=== PATIENT | female | born 1960 | race Caucasian/White ===

== ENCOUNTER 2022-04-11 20:39 | Emergency (ER) | payer BC ==
[~2022-04-11] VITALS: Ht 167.6 cm; Wt 72.7 kg
[2022-04-12] MEDS ORDERED: acetaminophen 325mg tablet PO ONE (01:15)
[2022-04-12] MEDS ORDERED: LIDOcaine/epinephrine/tetracaine TOPICAL sol 3 ML syringe TOP ONE (01:15)
[2022-04-12 01:47] VITALS: BP 152/73
[2022-04-12] MEDS ORDERED: bacitracin 15gm ointment TP ONE (03:00)
== END 2022-04-12 04:06 | disposition home or self-care (01) ==
LOC: ER 20:40
DX: T14.8XXA Other injury of unspecified body region, initial encounter (principal)
CPT/HCPCS: 12013; 70450; 70486; 72125; 99284; J3490

== ENCOUNTER 2022-10-20 00:07 | Inpatient (IN) | payer BC ==
[~2022-10-20] VITALS: Ht 165.1 cm; Wt 77.2 kg
[2022-10-20] VITALS (15 sets, daily range): BP systolic 122–183; BP diastolic 65–100
[2022-10-20] MEDS ORDERED: aspirin 325mg tablet PO ONE (00:50)
[2022-10-20 01:34] LABS: ALANINE AMINOTRANSFERASE 29 U/L (12-78); ALBUMIN 3.8 G/DL (3.4-5.0); ALBUMIN/GLOBULIN RATIO 1.2 (1.1-1.5); ALKALINE PHOSPHATASE 88 IU/L (46-116); ANION GAP 8 (8-16); ASPARTATE AMINO TRANSFERASE 18 U/L (10-37); BILIRUBIN,TOTAL 0.3 MG/DL (0.1-1.0); BLOOD UREA NITROGEN 25 MG/DL (7-18); BUN/CREATININE RATIO 36.2 (6.6-38.0); CALCIUM 8.3 MG/DL (8.5-10.1); CHLORIDE 107 MMOL/L (99-107); CREATININE 0.69 MG/DL (0.40-0.90); GLUCOSE 189 MG/DL (70-104); POTASSIUM 3.4 MMOL/L (3.5-5.1); SODIUM 142 MMOL/L (135-145); TOTAL CARBON DIOXIDE 26.7 MMOL/L (24-32); eGFR 86 ML/MIN
[2022-10-20 02:02] LABS: BASOPHILS # (AUTO) 0.1 X10'3 (0-0.2); BASOPHILS % (AUTO) 1.3 % (0-1); EOSINOPHILS # (AUTO) 0.1 X10'3 (0-0.9); EOSINOPHILS % (AUTO) 2.7 % (0-6); HEMATOCRIT 40.9 % (35.0-45.0); HEMOGLOBIN 14.4 g/dl (12.0-16.0); LYMPHOCYTES # (AUTO) 1.5 X10'3 (1.1-4.8); LYMPHOCYTES % (AUTO) 27.8 % (21-51); MEAN CORPUSCULAR HEMOGLOBIN 32.8 PG (27.0-31.0); MEAN CORPUSCULAR HGB CONC 35.2 g/dL (33.0-36.5); MEAN CORPUSCULAR VOLUME 93.3 FL (78-98); MONOCYTES # (AUTO) 0.6 X10'3 (0-0.9); MONOCYTES % (AUTO) 10.7 % (2-12); NEUTROPHILS # (AUTO) 3.1 X10'3 (1.8-7.7); NEUTROPHILS % (AUTO) 57.5 % (42-75); PLATELET COUNT 145 X10'3 (140-440); RED BLOOD COUNT 4.39 X10'6 (4.20-5.60); RED CELL DISTRIBUTION WIDTH 12.2 % (11.5-14.5); WHITE BLOOD COUNT 5.4 X10'3 (4.5-11.0)
[2022-10-20] MEDS ORDERED: magnesium 4gm in 100ml NS 100 ML IV PRN (03:40)
[2022-10-20] MEDS ORDERED: ondansetron/PF 4mg/2ml inj IV PRN (03:40)
[2022-10-20] MEDS ORDERED: mag hydrox/Alum hydrox/simeth 30ml oral suspension PO PRN (03:40)
[2022-10-20] MEDS ORDERED: PERFLUTREN PROTEIN-A MICROSPHR (Optison) 0.22 MG/ML 3ML VIAL IV PRN (03:40)
[2022-10-20] MEDS ORDERED: potassium Cl 40MEQ/1/2NS 520ml 520 ML IV PRN (03:40)
[2022-10-20] MEDS ORDERED: magnesium hydroxide 30ml (MOM) UD suspension PO PRN (03:40)
[2022-10-20] MEDS ORDERED: potassium Cl 20 mEq SR tablet PO PRN ×2 (03:40)
[2022-10-20] MEDS ORDERED: aminophylline 250mg/10ml inj. IV PRN (03:40)
[2022-10-20] MEDS ORDERED: acetaminophen 325mg tablet PO PRN (03:40)
[2022-10-20] MEDS ORDERED: metoprolol tartrate 1mg/ml inj IV PRN (03:40)
[2022-10-20] MEDS ORDERED: regadenoson 0.4mg/5ml syringe IV PRN (03:40)
[2022-10-20] MEDS ORDERED: nitroGLYCERIN 0.4mg SUBLingual tab SL PRN (03:40)
[2022-10-20] MEDS ORDERED: LEVO175T7 PO (03:53)
[2022-10-20] MEDS ORDERED: METO-395 PO (03:53)
[2022-10-20] MEDS ORDERED: PROG100C11 PO (03:53)
[2022-10-20] MEDS ORDERED: LISI5TAB22 PO (03:53)
[2022-10-20] MEDS: normal saline 1000ml 1,000 ML IV SCH ×2 (06:50→13:40)
[2022-10-20] MEDS: metoprolol succinate 25mg (24-HOUR) SR. Tablet PO SCH (08:00)
[2022-10-20] MEDS: docusate sod 100mg capsule PO SCH ×2 (08:30→21:15)
[2022-10-20] MEDS: levoTHYROXINE 175mcg tablet PO SCH (08:31)
[2022-10-20] MEDS: lisinopril 5mg tablet PO SCH (08:32)
[2022-10-20] MEDS: K and/or MAG REPLACEMENT MC SCH ×2 (08:35→20:00)
--- NOTE | 2022-10-20 09:55 | NUR ---
Incorrect VS 0700 See 0701 repeat
--- NOTE | 2022-10-20 10:06 | NUR ---
CRITICAL LAB CALLED WITH TROPONIN 63. DR. LIM PAGED WITH INFORMATION. PAGER ID: [phone] MESSAGE: ER BED 9-- LI. TROPONIN 63. PATIENT IS CURRENTLY IN STRESS TEST AND WILL BE GOING TO ROOM 3024B. THANKS, CARY BOYD [phone]
--- NOTE | 2022-10-20 10:07 | NUR ---
Patient in room ED 9. I have received report from Jessica BOYD and had the opportunity to ask questions and assume patient care.
[2022-10-20] MEDS ORDERED: enoxaparin 80mg/0.8ml syringe SUBCUT ONE (13:45)
--- NOTE | 2022-10-20 18:15 | NUR ---
Problems reprioritized. Patient report given, questions answered & plan of care reviewed with Naldo BOYD.
[2022-10-20] MEDS: enoxaparin 40mg/0.4ml syringe SQ SCH (21:18)
[2022-10-20] MEDS: progesterone, micronized 100mg capsule PO SCH (21:38)
[2022-10-21] VITALS (7 sets, daily range): BP systolic 120–147; BP diastolic 58–64
[2022-10-21] MEDS: normal saline 1000ml 1,000 ML IV SCH ×3 (02:00→19:40)
[2022-10-21 06:12] LABS: BASOPHILS # (AUTO) 0.1 X10'3 (0-0.2); BASOPHILS % (AUTO) 1.2 % (0-1); EOSINOPHILS # (AUTO) 0.1 X10'3 (0-0.9); EOSINOPHILS % (AUTO) 2.7 % (0-6); HEMATOCRIT 41.6 % (35.0-45.0); HEMOGLOBIN 14.3 g/dl (12.0-16.0); LYMPHOCYTES # (AUTO) 1.5 X10'3 (1.1-4.8); LYMPHOCYTES % (AUTO) 35.4 % (21-51); MEAN CORPUSCULAR HEMOGLOBIN 32.3 PG (27.0-31.0); MEAN CORPUSCULAR HGB CONC 34.3 g/dL (33.0-36.5); MEAN CORPUSCULAR VOLUME 94.2 FL (78-98); MEAN PLATELET VOLUME 8.4 FL (7.4-10.4); MONOCYTES # (AUTO) 0.4 X10'3 (0-0.9); MONOCYTES % (AUTO) 10.6 % (2-12); NEUTROPHILS # (AUTO) 2.1 X10'3 (1.8-7.7); NEUTROPHILS % (AUTO) 50.1 % (42-75); PLATELET COUNT 128 X10'3 (140-440); RED BLOOD COUNT 4.42 X10'6 (4.20-5.60); RED CELL DISTRIBUTION WIDTH 12.6 % (11.5-14.5); WHITE BLOOD COUNT 4.2 X10'3 (4.5-11.0)
[2022-10-21 06:22] LABS: ALANINE AMINOTRANSFERASE 24 U/L (12-78); ALBUMIN 3.5 G/DL (3.4-5.0); ALBUMIN/GLOBULIN RATIO 1.1 (1.1-1.5); ALKALINE PHOSPHATASE 53 IU/L (46-116); ANION GAP 7 (8-16); ASPARTATE AMINO TRANSFERASE 17 U/L (10-37); BILIRUBIN,TOTAL 0.4 MG/DL (0.1-1.0); BLOOD UREA NITROGEN 11 MG/DL (7-18); CALCIUM 8.3 MG/DL (8.5-10.1); CHLORIDE 110 MMOL/L (99-107); CREATININE 0.58 MG/DL (0.40-0.90); GLUCOSE 103 MG/DL (70-104); POTASSIUM 3.7 MMOL/L (3.5-5.1); SODIUM 143 MMOL/L (135-145); TOTAL CARBON DIOXIDE 25.6 MMOL/L (24-32); TOTAL PROTEIN 6.6 G/DL (6.4-8.2); eGFR > 90 ML/MIN
--- NOTE | 2022-10-21 06:54 | NUR ---
Patient in room PCU 3020L . I have received report Naldo BOYD from and had the opportunity to ask questions and assume patient care.
[2022-10-21] MEDS ORDERED: aminocaproic acid 250 MG/1 ML inj. ONE (07:00)
[2022-10-21] MEDS ORDERED: albumin (human) 25% 100 ML IV solution IV ONE (07:00)
[2022-10-21] MEDS ORDERED: LIDOcaine 2% 10ml vial ONE (07:00)
[2022-10-21] MEDS ORDERED: methylPREDNISolone sod succ 1000mg vial ONE (07:00)
[2022-10-21] MEDS ORDERED: calcium chloride 100 MG/1 ML inj IV ONE (07:00)
[2022-10-21] MEDS ORDERED: magnesium sulf 1 GM/2 ML ONE (07:00)
[2022-10-21] MEDS ORDERED: sodium bicarbonate (8.4%) 1 mEq/ml syringe ONE (07:00)
[2022-10-21] MEDS ORDERED: heparin 10,000 units/1 ML INJ ONE (07:00)
[2022-10-21] MEDS: K and/or MAG REPLACEMENT MC SCH ×2 (08:00→19:18)
[2022-10-21] MEDS: levoTHYROXINE 175mcg tablet PO SCH (08:33)
[2022-10-21] MEDS: docusate sod 100mg capsule PO SCH ×2 (08:37→19:25)
[2022-10-21] MEDS: metoprolol succinate 25mg (24-HOUR) SR. Tablet PO SCH (08:37)
[2022-10-21] MEDS: lisinopril 5mg tablet PO SCH (08:37)
--- NOTE | 2022-10-21 13:13 | NUR ---
PAGER ID: [phone] MESSAGE: ESTEBAN ON [phone], CAN YOU CALL ME AT [phone], THX
--- NOTE | 2022-10-21 13:21 | NUR ---
patient had been NPO. paged dr chandler. stated dr degroot stated patient can eat. I gave patient heart healty diet. will page dr degroot and cath to see if patient is getting an angiogram today
[2022-10-21] MEDS: progesterone, micronized 100mg capsule PO SCH (19:27)
[2022-10-21] MEDS: enoxaparin 40mg/0.4ml syringe SQ SCH (19:27)
[2022-10-22] VITALS (12 sets, daily range): BP systolic 125–149; BP diastolic 54–72
[2022-10-22 06:13] LABS: BASOPHILS # (AUTO) 0.1 X10'3 (0-0.2); BASOPHILS % (AUTO) 1.2 % (0-1); EOSINOPHILS # (AUTO) 0.1 X10'3 (0-0.9); EOSINOPHILS % (AUTO) 2.2 % (0-6); HEMATOCRIT 39.7 % (35.0-45.0); HEMOGLOBIN 14.1 g/dl (12.0-16.0); LYMPHOCYTES # (AUTO) 1.6 X10'3 (1.1-4.8); LYMPHOCYTES % (AUTO) 35.8 % (21-51); MEAN CORPUSCULAR HEMOGLOBIN 33.2 PG (27.0-31.0); MEAN CORPUSCULAR HGB CONC 35.5 g/dL (33.0-36.5); MEAN CORPUSCULAR VOLUME 93.6 FL (78-98); MONOCYTES # (AUTO) 0.4 X10'3 (0-0.9); MONOCYTES % (AUTO) 9.8 % (2-12); NEUTROPHILS # (AUTO) 2.3 X10'3 (1.8-7.7); PLATELET COUNT 126 X10'3 (140-440); RED BLOOD COUNT 4.24 X10'6 (4.20-5.60); RED CELL DISTRIBUTION WIDTH 12.3 % (11.5-14.5); WHITE BLOOD COUNT 4.6 X10'3 (4.5-11.0)
[2022-10-22] MEDS: normal saline 1000ml 1,000 ML IV SCH ×2 (06:21→09:23)
[2022-10-22 06:43] LABS: ALANINE AMINOTRANSFERASE 21 U/L (12-78); ALBUMIN 3.3 G/DL (3.4-5.0); ALBUMIN/GLOBULIN RATIO 1.1 (1.1-1.5); ALKALINE PHOSPHATASE 49 IU/L (46-116); ANION GAP 8 (8-16); ASPARTATE AMINO TRANSFERASE 21 U/L (10-37); BILIRUBIN,TOTAL 0.4 MG/DL (0.1-1.0); BLOOD UREA NITROGEN 11 MG/DL (7-18); BUN/CREATININE RATIO 18.6 (6.6-38.0); CALCIUM 8.4 MG/DL (8.5-10.1); CHLORIDE 109 MMOL/L (99-107); CHOL/HDL RATIO 5.1 (0.00-4.99); CHOLESTEROL 183 MG/DL (0-200); CREATININE 0.59 MG/DL (0.40-0.90); GLUCOSE 102 MG/DL (70-104); HDL CHOLESTEROL 36 MG/DL (35-60); LDL CHOLESTEROL 112 MG/DL (50-100); MAGNESIUM 2.1 MG/DL (1.5-2.4); POTASSIUM 3.9 MMOL/L (3.5-5.1); SODIUM 140 MMOL/L (135-145); TOTAL PROTEIN 6.4 G/DL (6.4-8.2); TRIGLYCERIDES 214 MG/DL (20-135); eGFR > 90 ML/MIN
[2022-10-22] MEDS: K and/or MAG REPLACEMENT MC SCH ×2 (08:00→20:00)
[2022-10-22] MEDS: metoprolol succinate 25mg (24-HOUR) SR. Tablet PO SCH (08:25)
[2022-10-22] MEDS: aspirin 325mg tablet, delayed-release (Ecotrin) PO SCH (08:25)
[2022-10-22] MEDS: docusate sod 100mg capsule PO SCH ×2 (08:25→22:22)
[2022-10-22] MEDS: lisinopril 5mg tablet PO SCH (08:26)
[2022-10-22] MEDS: levoTHYROXINE 175mcg tablet PO SCH (08:32)
--- NOTE | 2022-10-22 12:03 | NUR ---
PAGER ID: [phone] MESSAGE: ESTEBAN ON TELE@[phone], 3084B, GUILLERMO, IS GOING TO WATER SERVER ABOUT 1300ISH, THX (73 character message out of a maximum of 240) CLOSE [X] SEND ANOTHER PAGE Thank you for visiting [facility] promotional table spacer promotional table spacer
[2022-10-22] MEDS ORDERED: verapamil 2.5 mg/ml inj IV ONE (14:05)
[2022-10-22] MEDS ORDERED: fentaNYL/PF 50MCG/1 ML 2ML syringe ONE (14:05)
[2022-10-22] MEDS ORDERED: midazolam 1 mg/ML 2ml injection ONE (14:05)
[2022-10-22] MEDS ORDERED: LIDOcaine 1% (10mg/ml) 2ml vial ONE (14:05)
[2022-10-22] MEDS ORDERED: heparin 1,000unit/ml 10ml vial 10 ML ONE (14:06)
[2022-10-22] MEDS ORDERED: iohexol 350MG/ML 100ml bottle IV ONE (14:06)
[2022-10-22] MEDS ORDERED: nitroGLYCERIN-Tridil 50MG/D5W 250 ML IV ONE (14:06)
[2022-10-22] MEDS ORDERED: iohexol 350 MG/ML 50ML vial IV ONE (14:53)
[2022-10-22] MEDS ORDERED: HYDROcodone/acetaminophen 10/325mg tab PO PRN (15:25)
[2022-10-22] MEDS ORDERED: HYDROcodone/acetaminophen 5mg/325mg tablet PO PRN (15:25)
--- NOTE | 2022-10-22 15:52 | NUR ---
Pt returned from parking lot laborer at approx 1530, R radial access obtained in lab. Report of 100% LAD and 99% RLA occlusion. Cardio consult pending. LN paged @ [phone] - Patient 3024B Janna Wilde, returned from parking lot laborer has been NPO, may we advance diet? Please advise. Neelima Kaur, BARBARA II @[phone].
--- NOTE | 2022-10-22 15:56 | NUR ---
MD gave telephone order to advance diet to heart healthy, orders updated.
--- NOTE | 2022-10-22 18:00 | NUR ---
Patient in room PCU 3024. I have received report from Neelima JIMENEZ and had the opportunity to ask questions and assume patient care.
[2022-10-22] MEDS: enoxaparin 40mg/0.4ml syringe SQ SCH (22:22)
[2022-10-22] MEDS: atorvastatin 20mg tablet PO SCH (22:22)
[2022-10-22] MEDS: progesterone, micronized 100mg capsule PO SCH (22:23)
[2022-10-23] VITALS (8 sets, daily range): BP systolic 123–149; BP diastolic 58–75
[2022-10-23] MEDS: normal saline 1000ml 1,000 ML IV SCH (01:40)
--- NOTE | 2022-10-23 02:00 | NUR ---
PT WANTED TO SLEEP AND REQUESTED TO START THE FLUIDS LATER. WE WILL START THE NS AT 5:30 PER PATIENT REQUEST
[2022-10-23 06:09] LABS: BASOPHILS % (AUTO) 0.9 % (0-1); EOSINOPHILS # (AUTO) 0.1 X10'3 (0-0.9); EOSINOPHILS % (AUTO) 1.4 % (0-6); HEMATOCRIT 42.5 % (35.0-45.0); HEMOGLOBIN 14.9 g/dl (12.0-16.0); LYMPHOCYTES # (AUTO) 1.1 X10'3 (1.1-4.8); LYMPHOCYTES % (AUTO) 19.1 % (21-51); MEAN CORPUSCULAR HEMOGLOBIN 32.6 PG (27.0-31.0); MEAN CORPUSCULAR HGB CONC 35.1 g/dL (33.0-36.5); MEAN PLATELET VOLUME 8.2 FL (7.4-10.4); MONOCYTES # (AUTO) 0.6 X10'3 (0-0.9); MONOCYTES % (AUTO) 10.7 % (2-12); NEUTROPHILS # (AUTO) 3.9 X10'3 (1.8-7.7); NEUTROPHILS % (AUTO) 67.9 % (42-75); PLATELET COUNT 131 X10'3 (140-440); RED BLOOD COUNT 4.57 X10'6 (4.20-5.60); RED CELL DISTRIBUTION WIDTH 12.1 % (11.5-14.5); WHITE BLOOD COUNT 5.7 X10'3 (4.5-11.0)
[2022-10-23 06:15] LABS: ALANINE AMINOTRANSFERASE 32 U/L (12-78); ALBUMIN 3.8 G/DL (3.4-5.0); ALBUMIN/GLOBULIN RATIO 1.1 (1.1-1.5); ALKALINE PHOSPHATASE 57 IU/L (46-116); ANION GAP 9 (8-16); ASPARTATE AMINO TRANSFERASE 22 U/L (10-37); BILIRUBIN,TOTAL 0.5 MG/DL (0.1-1.0); BLOOD UREA NITROGEN 13 MG/DL (7-18); BUN/CREATININE RATIO 22.4 (6.6-38.0); CALCIUM 8.9 MG/DL (8.5-10.1); CHLORIDE 107 MMOL/L (99-107); CREATININE 0.58 MG/DL (0.40-0.90); GLUCOSE 116 MG/DL (70-104); POTASSIUM 3.7 MMOL/L (3.5-5.1); SODIUM 141 MMOL/L (135-145); TOTAL CARBON DIOXIDE 25.5 MMOL/L (24-32); TOTAL PROTEIN 7.2 G/DL (6.4-8.2); eGFR > 90 ML/MIN
--- NOTE | 2022-10-23 06:37 | NUR ---
Problems reprioritized. Patient report given, questions answered & plan of care reviewed with Neelima RN.
[2022-10-23] MEDS: lisinopril 5mg tablet PO SCH (07:50)
[2022-10-23] MEDS: metoprolol succinate 25mg (24-HOUR) SR. Tablet PO SCH (07:50)
[2022-10-23] MEDS: aspirin 325mg tablet, delayed-release (Ecotrin) PO SCH (07:50)
[2022-10-23] MEDS: levoTHYROXINE 175mcg tablet PO SCH (07:50)
[2022-10-23] MEDS: docusate sod 100mg capsule PO SCH ×2 (07:50→21:58)
[2022-10-23] MEDS: K and/or MAG REPLACEMENT MC SCH ×2 (08:00→20:00)
[2022-10-23] MEDS ORDERED: MESSAGE TO PHARMACY IJ ONE (08:20)
[2022-10-23] MEDS ORDERED: dextrose 50%-water 50ml dispensing syringe IV PRN (08:20)
[2022-10-23] MEDS ORDERED: MESSAGE TO NURSING PO ONE ×5 (08:20→10:00)
[2022-10-23 09:28] LABS: APTT 29 SECONDS (22-32)
[2022-10-23 09:46] LABS: HEMOGLOBIN A1C 5.2 % (4.5-6.2)
[2022-10-23 12:07] LABS: CLARITY,URINE SLIGHTLY CLOUDY (Clear); COLOR,URINE YELLOW (Yellow); GLUCOSE, URINE NEGATIVE (Neg); KETONES,URINE NEGATIVE (Neg); LEUKOCYTE ESTERASE ,URINE SMALL (Neg); NITRITES, URINE NEGATIVE (Neg); OCCULT BLOOD,URINE SMALL (Neg); PH,URINE 5.5 (4.8-8.0); PROTEIN,URINE NEGATIVE (Neg); UROBILINOGEN,URINE 0.2 E.U/dL (0.2-1.0)
[2022-10-23 12:59] LABS: UA COLLECTION TYPE CLN CATCH MIDSTREAM
[2022-10-23 13:01] LABS: BACTERIA,URINE 2+ /HPF (Neg)
[2022-10-23 13:02] LABS: MUCUS STRANDS FEW /LPF (Neg); SQUAMOUS EPITHELIAL CELL,UR MANY /LPF (FEW)
[2022-10-23 18:02] LABS: ABG BASE EXCESS -1.2 mmol/L (-2.0-2.0); ABG HCO3 22.7 mmol/L (22.0-26.0); ABG OXYGEN SATURATION 96.1 % (94-97); ABG PCO2 (T) 35.8 mmHg (32.0-45.0); ABG PO2 (T) 83.1 mmHg (75.0-100.0); ALLEN'S TEST POSITIVE; FCOHb 0.2 % (0.0-3.9); FMetHb 0.1 % (0.0-1.5); FO2Hb 95.8 % (94-97); TOTAL HEMOGLOBIN 15.7 G/dl (12.0-16.0)
[2022-10-23] MEDS: progesterone, micronized 100mg capsule PO SCH (21:58)
[2022-10-23] MEDS: atorvastatin 20mg tablet PO SCH (21:58)
[2022-10-23] MEDS: enoxaparin 40mg/0.4ml syringe SQ SCH (21:58)
[2022-10-24 02:00] VITALS: BP 131/76
[2022-10-24 06:12] LABS: BASOPHILS % (AUTO) 0.8 % (0-1); EOSINOPHILS # (AUTO) 0.1 X10'3 (0-0.9); EOSINOPHILS % (AUTO) 1.7 % (0-6); HEMOGLOBIN 14.9 g/dl (12.0-16.0); LYMPHOCYTES # (AUTO) 1.3 X10'3 (1.1-4.8); LYMPHOCYTES % (AUTO) 24.5 % (21-51); MEAN CORPUSCULAR HEMOGLOBIN 32.4 PG (27.0-31.0); MEAN CORPUSCULAR HGB CONC 34.6 g/dL (33.0-36.5); MEAN CORPUSCULAR VOLUME 93.6 FL (78-98); MEAN PLATELET VOLUME 8.3 FL (7.4-10.4); MONOCYTES # (AUTO) 0.6 X10'3 (0-0.9); MONOCYTES % (AUTO) 11.4 % (2-12); NEUTROPHILS # (AUTO) 3.3 X10'3 (1.8-7.7); NEUTROPHILS % (AUTO) 61.6 % (42-75); PLATELET COUNT 135 X10'3 (140-440); RED BLOOD COUNT 4.59 X10'6 (4.20-5.60); RED CELL DISTRIBUTION WIDTH 12.5 % (11.5-14.5); WHITE BLOOD COUNT 5.3 X10'3 (4.5-11.0)
--- NOTE | 2022-10-24 06:17 | NUR ---
Patient in room PCU 3024. I have received report from Neelima RN and had the opportunity to ask questions and assume patient care.
[2022-10-24 06:21] LABS: ALANINE AMINOTRANSFERASE 57 U/L (12-78); ALBUMIN 3.8 G/DL (3.4-5.0); ALBUMIN/GLOBULIN RATIO 1.1 (1.1-1.5); ALKALINE PHOSPHATASE 61 IU/L (46-116); ANION GAP 6 (8-16); ASPARTATE AMINO TRANSFERASE 38 U/L (10-37); BILIRUBIN,TOTAL 0.5 MG/DL (0.1-1.0); BLOOD UREA NITROGEN 19 MG/DL (7-18); BUN/CREATININE RATIO 27.1 (6.6-38.0); CALCIUM 8.7 MG/DL (8.5-10.1); CHLORIDE 107 MMOL/L (99-107); GLUCOSE 124 MG/DL (70-104); MAGNESIUM 1.9 MG/DL (1.5-2.4); POTASSIUM 4.3 MMOL/L (3.5-5.1); SODIUM 141 MMOL/L (135-145); TOTAL CARBON DIOXIDE 28.4 MMOL/L (24-32); TOTAL PROTEIN 7.2 G/DL (6.4-8.2); eGFR 85 ML/MIN
--- NOTE | 2022-10-24 06:32 | NUR ---
Problems reprioritized. Patient report given, questions answered & plan of care reviewed with Agueda BOYD.
[2022-10-24 07:00] VITALS: BP 139/64
[2022-10-24] MEDS: docusate sod 100mg capsule PO SCH ×3 (08:00→20:00)
[2022-10-24] MEDS: K and/or MAG REPLACEMENT MC SCH ×2 (08:00→20:00)
[2022-10-24] MEDS: metoprolol succinate 25mg (24-HOUR) SR. Tablet PO SCH (08:03)
[2022-10-24] MEDS: lisinopril 5mg tablet PO SCH (08:03)
[2022-10-24] MEDS: aspirin 325mg tablet, delayed-release (Ecotrin) PO SCH (08:03)
[2022-10-24] MEDS: levoTHYROXINE 175mcg tablet PO SCH (08:03)
[2022-10-24] MEDS ORDERED: ringers solution, lacted 1,000 ML IV ONE (08:10)
[2022-10-24] MEDS ORDERED: ALPRAZolam 0.25mg tablet PO PRN (09:25)
[2022-10-24] MEDS: LORazepam 0.5 MG tablet PO PRN ×2 (10:23→21:42)
--- NOTE | 2022-10-24 11:03 | NUR ---
Initial: Pt admitted for unstable angina. Per MD notes pt had a cardiac cath with recommendation for CABG, tentatively to occur tomorrow. Pt on a heart healthy diet and eating well, documented with 75-100% PO intake since admit meeting estimated nutrient needs. LB 10/24. No nutrition intervention implemented at this time. Will continue to follow. Recommendations: 1) Continue heart healthy diet 2) Routine bowel care 3) Weekly scaled weights Addendum: 10/24/22 at [address] Amended: Links added.
[2022-10-24 12:12] VITALS: BP 123/79
[2022-10-24 15:29] VITALS: BP 146/66
[2022-10-24 18:00] VITALS: BP 145/63
--- NOTE | 2022-10-24 18:00 | NUR ---
Patient in room PCU 3024. I have received report from Agueda BOYD and had the opportunity to ask questions and assume patient care.
[2022-10-24] MEDS: atorvastatin 20mg tablet PO SCH (21:42)
[2022-10-24] MEDS: enoxaparin 40mg/0.4ml syringe SQ SCH (21:42)
[2022-10-24] MEDS: progesterone, micronized 100mg capsule PO SCH (21:48)
[2022-10-24 22:00] VITALS: BP 136/74
[2022-10-25] VITALS (20 sets, daily range): BP systolic 88–146; BP diastolic 5–69
[2022-10-25] MEDS ORDERED: gabapentin 400mg capsule PO ONE ×2 (05:30→07:05)
[2022-10-25] MEDS ORDERED: mupirocin 2% nasal ointment 1gm UD NS SCH (05:30)
[2022-10-25] MEDS ORDERED: insulin glargine (Lantus) pen - multi-dose SQ PRN ×2 (05:30→13:50)
[2022-10-25] MEDS ORDERED: famotidine/PF 10 mg/ml inj IV ONE (06:00)
[2022-10-25] MEDS ORDERED: LORazepam 2 mg/ml vial IV ONE (06:00)
[2022-10-25] MEDS ORDERED: ceFAZolin 1000mg inj ONE ×2 (06:13→07:30)
[2022-10-25] MEDS ORDERED: BUPIVAcaine/PF 2.5 mg/ml (0.25%) 30ml vial ONE (06:13)
[2022-10-25] MEDS ORDERED: heparin 10,000 units/1 ML INJ IR ONE (06:38)
[2022-10-25] MEDS ORDERED: papaverine 30 mg/ml 2ml inj. IA ONE (06:39)
--- NOTE | 2022-10-25 06:45 | NUR ---
Made sure that all consent forms are signed and dated. Completed and in chart
--- NOTE | 2022-10-25 06:59 | NUR ---
Problems reprioritized. Patient report given, questions answered & plan of care reviewed with Marlen BOYD.
[2022-10-25] MEDS ORDERED: MIDAZolam 1mg/ml 10ml vial ONE (07:12)
[2022-10-25] MEDS ORDERED: SUfentanil 50mcg/ml 1ml amp IV ONE (07:12)
[2022-10-25] MEDS: metoprolol succinate 25mg (24-HOUR) SR. Tablet PO SCH (07:27)
[2022-10-25] MEDS ORDERED: INSULIN R 100 UNIT in NS 100ML (1 UNIT/1 ML) BAG IV ONE (07:30)
[2022-10-25] MEDS ORDERED: isoflurane 100ml inhalation liquid IH ONE (07:30)
[2022-10-25] MEDS ORDERED: nitroGLYCERIN in D5W 50mg/250ml (Tridil) infusion IV ONE (07:30)
[2022-10-25] MEDS ORDERED: DOPamine/D5W 400mg/250ml bag IV ONE (07:30)
[2022-10-25] MEDS ORDERED: NORepinephrine 8 MG in NS 250 ML BAG (32 mcg/ml) IV ONE (07:30)
--- NOTE | 2022-10-25 07:31 | NUR ---
Pt was taken down to OR, accompanied by Staff, , and son. All personal belongings were taken by son. Nothing left in the room.
[2022-10-25 07:38] LABS: BASOPHILS # (AUTO) 0.1 X10'3 (0-0.2); BASOPHILS % (AUTO) 0.9 % (0-1); EOSINOPHILS # (AUTO) 0.1 X10'3 (0-0.9); EOSINOPHILS % (AUTO) 1.8 % (0-6); LYMPHOCYTES # (AUTO) 1.5 X10'3 (1.1-4.8); LYMPHOCYTES % (AUTO) 25.1 % (21-51); MEAN PLATELET VOLUME 8.4 FL (7.4-10.4); MONOCYTES # (AUTO) 0.6 X10'3 (0-0.9); MONOCYTES % (AUTO) 9.5 % (2-12); NEUTROPHILS # (AUTO) 3.9 X10'3 (1.8-7.7); NEUTROPHILS % (AUTO) 62.7 % (42-75); PLATELET COUNT 135 X10'3 (140-440); WHITE BLOOD COUNT 6.2 X10'3 (4.5-11.0)
[2022-10-25 07:44] LABS: ALANINE AMINOTRANSFERASE 60 U/L (12-78); ALBUMIN 3.9 G/DL (3.4-5.0); ALBUMIN/GLOBULIN RATIO 1.1 (1.1-1.5); ALKALINE PHOSPHATASE 57 IU/L (46-116); ANION GAP 6 (8-16); ASPARTATE AMINO TRANSFERASE 36 U/L (10-37); BILIRUBIN,TOTAL 0.5 MG/DL (0.1-1.0); BLOOD UREA NITROGEN 19 MG/DL (7-18); BUN/CREATININE RATIO 28.8 (6.6-38.0); CALCIUM 9.1 MG/DL (8.5-10.1); CHLORIDE 107 MMOL/L (99-107); CREATININE 0.66 MG/DL (0.40-0.90); GLUCOSE 109 MG/DL (70-104); MAGNESIUM 1.8 MG/DL (1.5-2.4); POTASSIUM 3.9 MMOL/L (3.5-5.1); SODIUM 139 MMOL/L (135-145); TOTAL CARBON DIOXIDE 26.3 MMOL/L (24-32); TOTAL PROTEIN 7.3 G/DL (6.4-8.2); eGFR > 90 ML/MIN
[2022-10-25] MEDS: docusate sod 100mg capsule PO SCH (08:00)
[2022-10-25] MEDS: aspirin 325mg tablet, delayed-release (Ecotrin) PO SCH (08:00)
[2022-10-25] MEDS: levoTHYROXINE 175mcg tablet PO SCH (08:00)
[2022-10-25] MEDS: K and/or MAG REPLACEMENT MC SCH (08:00)
[2022-10-25] MEDS: lisinopril 5mg tablet PO SCH (08:00)
[2022-10-25 08:17] LABS: RED BLOOD COUNT 4.15 X10'6 (4.20-5.60)
[2022-10-25 08:18] LABS: HEMOGLOBIN 13.6 g/dl (12.0-16.0); MEAN CORPUSCULAR HEMOGLOBIN 32.7 PG (27.0-31.0); MEAN CORPUSCULAR HGB CONC 35.7 g/dL (33.0-36.5); MEAN CORPUSCULAR VOLUME 91.6 FL (78-98)
[2022-10-25] MEDS ORDERED: gelatin sponge, absorbable (Gelfoam 100) sponge TP ONE (08:50)
[2022-10-25] MEDS ORDERED: propofol inj 20 ML IV ONE (09:13)
[2022-10-25] MEDS ORDERED: phenylephrine 10mg/ml inj. -priapism dosing ONE (09:13)
[2022-10-25] MEDS ORDERED: ePHEDrine 50MG/ML INJ. ONE (09:13)
[2022-10-25] MEDS ORDERED: LIDOcaine 2% (20mg/ml) 5ml vial ONE (09:13)
[2022-10-25] MEDS ORDERED: rocuronium 10mg/ml inj IV ONE ×3 (09:13)
[2022-10-25] MEDS ORDERED: 0.9 % SODIUM CHLORIDE 10 ML VIAL ONE ×2 (09:13→12:43)
[2022-10-25] MEDS ORDERED: FENTANYL-0.9 % NACL/PF 100 ML IV PRN (10:15)
[2022-10-25] MEDS ORDERED: propofol 1000mg/100ml bottle 100 ML IV SCH (10:15)
[2022-10-25] MEDS ORDERED: midazolam 1 mg/ML 2ml injection IV PRN (10:15)
[2022-10-25] MEDS ORDERED: fentaNYL/PF 50MCG/1 ML 2ML syringe IV PRN (10:15)
[2022-10-25 12:37] LABS: ACTIVATED CLOTTING TIME 127 SEC (101-148)
[2022-10-25] MEDS ORDERED: potassium Cl 2 mEq/ml inj IV ONE (13:00)
[2022-10-25] MEDS ORDERED: ondansetron/PF 4mg/2ml inj ONE (13:03)
[2022-10-25] MEDS ORDERED: albumin (Human) 5% 250ml 250 ML IV ONE (13:03)
[2022-10-25] MEDS ORDERED: dexamethasone sod phosphate 4mg/ml inj. ONE (13:03)
[2022-10-25] MEDS ORDERED: acetaminophen 1,000mg/100ml IV 100 ML IV ONE (13:16)
[2022-10-25] MEDS ORDERED: magnesium 4gm in 100ml NS 100 ML IV PRN (13:50)
[2022-10-25] MEDS ORDERED: niCARDipine-NS 40mg/200ml IVPB 200 ML IV PRN (13:50)
[2022-10-25] MEDS ORDERED: metoclopramide 5 mg/ml inj IV PRN (13:50)
[2022-10-25] MEDS ORDERED: sodium chloride 0.45% 1,000 ML IV SCH (13:50)
[2022-10-25] MEDS ORDERED: potassium Cl 20 mEq SR tablet PO PRN (13:50)
[2022-10-25] MEDS ORDERED: magnesium 2GM in 50ml NS 50 ML IV PRN (13:50)
[2022-10-25] MEDS ORDERED: nitroGLYCERIN-Tridil 50MG/D5W 250 ML IV PRN (13:50)
[2022-10-25] MEDS ORDERED: morphine 4 MG/ML inj SYRINge IV PRN (13:50)
[2022-10-25] MEDS ORDERED: mineral oil 133ml enema RC PRN (13:50)
[2022-10-25] MEDS ORDERED: bisacodyl 10mg suppository rectal RC PRN (13:50)
[2022-10-25] MEDS ORDERED: potassium CL 10mEq/100ml bag 100 ML IV PRN (13:50)
[2022-10-25] MEDS ORDERED: Insulin Reg/NS 100units/100mL 100 ML IV SCH (13:50)
[2022-10-25] MEDS ORDERED: normal saline 250ml IV soln 250 ML IV PRN (13:50)
[2022-10-25] MEDS ORDERED: acetaminophen 325mg tablet PO PRN ×2 (13:50)
[2022-10-25] MEDS ORDERED: DOPamine 400mg/D5W 250ml 250 ML IV PRN (13:50)
[2022-10-25] MEDS ORDERED: HYDROcodone/acetaminophen 10/325mg tab PO PRN (13:50)
[2022-10-25] MEDS ORDERED: dextrose 50%-water 50ml dispensing syringe IV PRN (13:50)
[2022-10-25] MEDS ORDERED: ondansetron/PF 4mg/2ml inj IV PRN (13:50)
[2022-10-25] MEDS ORDERED: Neutra Phos packet PO PRN (13:50)
[2022-10-25] MEDS ORDERED: sodium phosphate inj. 15 MMOL in dextrose 5%-water 250 ML IV PRN (13:50)
[2022-10-25] MEDS ORDERED: sodium phosphate inj. 30 MMOL in dextrose 5%-water 250 ML IV PRN (13:50)
[2022-10-25] MEDS ORDERED: morphine 2 MG/ML inj. syringe IV PRN (13:50)
[2022-10-25] MEDS ORDERED: magnesium hydroxide 30ml (MOM) UD suspension PO PRN (13:50)
[2022-10-25] MEDS ORDERED: potassium Cl 40MEQ/270ML bag 250 ML IV PRN (13:50)
[2022-10-25] MEDS ORDERED: potassium Cl 40MEQ/1/2NS 520ml 520 ML IV PRN (13:50)
[2022-10-25] MEDS: NORepinephrine 8mg/ 250ml NS 250 ML IV SCH (14:00)
--- NOTE | 2022-10-25 14:00 | NUR ---
Nutrition consult: Pt s/p CABG x 3 today. Pt would benefit from post CABG nutrition therapy education once appropriate following extubation. Will continue to follow. Addendum: 10/25/22 at [address] Amended: Links added.
[2022-10-25 14:32] LABS: BASOPHILS % (AUTO) 0.2 % (0-1); EOSINOPHILS % (AUTO) 0.2 % (0-6); HEMATOCRIT 30.7 % (35.0-45.0); HEMOGLOBIN 10.8 g/dl (12.0-16.0); LYMPHOCYTES # (AUTO) 0.9 X10'3 (1.1-4.8); LYMPHOCYTES % (AUTO) 8.1 % (21-51); MEAN CORPUSCULAR HEMOGLOBIN 32.8 PG (27.0-31.0); MEAN CORPUSCULAR HGB CONC 35.1 g/dL (33.0-36.5); MEAN CORPUSCULAR VOLUME 93.5 FL (78-98); MONOCYTES # (AUTO) 0.5 X10'3 (0-0.9); MONOCYTES % (AUTO) 5.1 % (2-12); NEUTROPHILS # (AUTO) 9.1 X10'3 (1.8-7.7); NEUTROPHILS % (AUTO) 86.4 % (42-75); PLATELET COUNT 82 X10'3 (140-440); RED BLOOD COUNT 3.28 X10'6 (4.20-5.60); RED CELL DISTRIBUTION WIDTH 11.8 % (11.5-14.5); WHITE BLOOD COUNT 10.5 X10'3 (4.5-11.0)
[2022-10-25 14:38] LABS: APTT 31 SECONDS (22-32)
[2022-10-25 14:41] LABS: ALANINE AMINOTRANSFERASE 31 U/L (12-78); ALBUMIN 2.6 G/DL (3.4-5.0); ALBUMIN/GLOBULIN RATIO 1.5 (1.1-1.5); ALKALINE PHOSPHATASE 32 IU/L (46-116); ANION GAP 13 (8-16); ASPARTATE AMINO TRANSFERASE 31 U/L (10-37); BILIRUBIN,TOTAL 0.6 MG/DL (0.1-1.0); BLOOD UREA NITROGEN 11 MG/DL (7-18); BUN/CREATININE RATIO 17.7 (6.6-38.0); CALCIUM 6.5 MG/DL (8.5-10.1); CHLORIDE 119 MMOL/L (99-107); CREATININE 0.62 MG/DL (0.40-0.90); GLUCOSE 124 MG/DL (70-104); MAGNESIUM 1.8 MG/DL (1.5-2.4); SODIUM 153 MMOL/L (135-145); TOTAL CARBON DIOXIDE 21.3 MMOL/L (24-32); TOTAL PROTEIN 4.3 G/DL (6.4-8.2); eGFR > 90 ML/MIN
[2022-10-25 14:45] LABS: POTASSIUM 2.7 MMOL/L (3.5-5.1)
[2022-10-25] MEDS: albumin (Human) 5% 250ml 250 ML IV PRN ×3 (14:50→22:08)
--- NOTE | 2022-10-25 15:10 | NUR ---
Dr. Celaya rounding at bedside and notified of critical K of 2.7; start replacement but recheck bmp as Na also appears elevated.
[2022-10-25] MEDS: potassium Cl 20mEq/100mL bag 100 ML IV PRN ×3 (15:12→17:30)
[2022-10-25] MEDS: ceFAZolin/D5W- 1GM premix 50 ML IV SCH (15:12)
[2022-10-25] MEDS: Insulin Reg/NS 100units/100mL 100 ML IV SCH (15:18)
[2022-10-25 16:05] LABS: ANION GAP 13 (8-16); BLOOD UREA NITROGEN 13 MG/DL (7-18); BUN/CREATININE RATIO 16.9 (6.6-38.0); CALCIUM 7.5 MG/DL (8.5-10.1); CHLORIDE 111 MMOL/L (99-107); CREATININE 0.77 MG/DL (0.40-0.90); GLUCOSE 169 MG/DL (70-104); POTASSIUM 3.6 MMOL/L (3.5-5.1); SODIUM 149 MMOL/L (135-145); TOTAL CARBON DIOXIDE 24.6 MMOL/L (24-32); eGFR 76 ML/MIN
--- NOTE | 2022-10-25 17:25 | NUR ---
Dr. Celaya at bedside with orders to extubate; patient tolerated well and placed on 2L NC. With repeat BMP, potassium up to 3.6 after 20meq of Potassium. Orders to only transfuse 40meq of the remaining 60meq. Will recheck at the 6h post-op time.
--- NOTE | 2022-10-25 17:45 | NUR ---
Received to room 2008, accompanied by MDs and surgical crew. Placed on ventilator, to surveillance system monitor, arterial line and PA line pressure zeroed & monitored. Chest tubes to suction at 20 cm. Deras cath to gravity drainage. Dressings are dry and intact. See assessment record. All vasoactive drugs are infusing via central line.
--- NOTE | 2022-10-25 18:15 | NUR ---
Problems reprioritized. Patient report given, questions answered & plan of care reviewed with Haylie BOYD.
--- NOTE | 2022-10-25 18:20 | NUR ---
Patient in room CICU 2008. I have received report from Aleksandar BOYD and had the opportunity to ask questions and assume patient care.
[2022-10-25] MEDS: mupirocin 2% nasal ointment 1gm UD NS SCH (20:45)
[2022-10-25] MEDS: sennosides/docusate sodium tablet PO SCH (20:45)
[2022-10-25 20:48] LABS: BASOPHILS % (AUTO) 0 % (0-1); EOSINOPHILS % (AUTO) 0 % (0-6); HEMATOCRIT 30.2 % (35.0-45.0); HEMOGLOBIN 10.3 g/dl (12.0-16.0); LYMPHOCYTES # (AUTO) 0.3 X10'3 (1.1-4.8); LYMPHOCYTES % (AUTO) 2.9 % (21-51); MEAN CORPUSCULAR HGB CONC 34.2 g/dL (33.0-36.5); MEAN CORPUSCULAR VOLUME 93.6 FL (78-98); MEAN PLATELET VOLUME 8.4 FL (7.4-10.4); MONOCYTES # (AUTO) 0.6 X10'3 (0-0.9); MONOCYTES % (AUTO) 5.1 % (2-12); NEUTROPHILS # (AUTO) 10.7 X10'3 (1.8-7.7); PLATELET COUNT 88 X10'3 (140-440); RED BLOOD COUNT 3.23 X10'6 (4.20-5.60); WHITE BLOOD COUNT 11.6 X10'3 (4.5-11.0)
[2022-10-25] MEDS: vancomycin/NS 1 GM ADD-VANTAGE 250 ML IV SCH (20:52)
[2022-10-25 20:59] LABS: ALBUMIN 3.7 G/DL (3.4-5.0); ANION GAP 10 (8-16); BLOOD UREA NITROGEN 14 MG/DL (7-18); BUN/CREATININE RATIO 22.6 (6.6-38.0); CALCIUM 7.7 MG/DL (8.5-10.1); CHLORIDE 113 MMOL/L (99-107); CREATININE 0.62 MG/DL (0.40-0.90); GLUCOSE 116 MG/DL (70-104); MAGNESIUM 3.6 MG/DL (1.5-2.4); PHOSPHORUS 3.3 MG/DL (2.3-4.5); POTASSIUM 4.1 MMOL/L (3.5-5.1); SODIUM 148 MMOL/L (135-145); TOTAL CARBON DIOXIDE 25.1 MMOL/L (24-32); eGFR > 90 ML/MIN
[2022-10-25] MEDS: atorvastatin 10mg tablet PO SCH (21:25)
[2022-10-25] MEDS: gabapentin 300mg capsule PO SCH (21:26)
[2022-10-25] MEDS: HYDROcodone/acetaminophen 10/325mg tab PO PRN (21:27)
[2022-10-26] VITALS (24 sets, daily range): BP systolic 104–157; BP diastolic 44–62
[2022-10-26] MEDS: ceFAZolin/D5W- 1GM premix 50 ML IV SCH ×4 (00:05→23:55)
[2022-10-26 03:42] LABS: BASOPHILS % (AUTO) 0 % (0-1); EOSINOPHILS % (AUTO) 0 % (0-6); HEMATOCRIT 27.8 % (35.0-45.0); HEMOGLOBIN 9.7 g/dl (12.0-16.0); LYMPHOCYTES # (AUTO) 0.5 X10'3 (1.1-4.8); LYMPHOCYTES % (AUTO) 3.3 % (21-51); MEAN CORPUSCULAR HEMOGLOBIN 32.8 PG (27.0-31.0); MEAN CORPUSCULAR VOLUME 93.7 FL (78-98); MEAN PLATELET VOLUME 8.6 FL (7.4-10.4); MONOCYTES # (AUTO) 0.9 X10'3 (0-0.9); MONOCYTES % (AUTO) 6.3 % (2-12); NEUTROPHILS # (AUTO) 12.4 X10'3 (1.8-7.7); NEUTROPHILS % (AUTO) 90.4 % (42-75); PLATELET COUNT 89 X10'3 (140-440); RED BLOOD COUNT 2.96 X10'6 (4.20-5.60); RED CELL DISTRIBUTION WIDTH 12.4 % (11.5-14.5); WHITE BLOOD COUNT 13.7 X10'3 (4.5-11.0)
[2022-10-26 03:51] LABS: APTT 27 SECONDS (22-32)
[2022-10-26 03:56] LABS: CHLORIDE 112 MMOL/L (99-107); GLUCOSE 138 MG/DL (70-104); POTASSIUM 4.1 MMOL/L (3.5-5.1); SODIUM 144 MMOL/L (135-145)
[2022-10-26 03:57] LABS: ALANINE AMINOTRANSFERASE 39 U/L (12-78); ALBUMIN 3.6 G/DL (3.4-5.0); ALBUMIN/GLOBULIN RATIO 1.8 (1.1-1.5); ALKALINE PHOSPHATASE 30 IU/L (46-116); ANION GAP 7 (8-16); ASPARTATE AMINO TRANSFERASE 49 U/L (10-37); BILIRUBIN,TOTAL 0.4 MG/DL (0.1-1.0); BLOOD UREA NITROGEN 14 MG/DL (7-18); BUN/CREATININE RATIO 24.1 (6.6-38.0); CALCIUM 7.7 MG/DL (8.5-10.1); CREATININE 0.58 MG/DL (0.40-0.90); MAGNESIUM 2.7 MG/DL (1.5-2.4); PHOSPHORUS 3.7 MG/DL (2.3-4.5); TOTAL CARBON DIOXIDE 25.2 MMOL/L (24-32); TOTAL PROTEIN 5.6 G/DL (6.4-8.2); TRIGLYCERIDES 47 MG/DL (20-135); eGFR > 90 ML/MIN
--- NOTE | 2022-10-26 06:25 | NUR ---
Problems reprioritized. Patient report given, questions answered & plan of care reviewed with Obdulia BOYD.
[2022-10-26] MEDS: metoprolol tartrate 12.5mg (1/2 tablet) PO SCH ×2 (06:42→20:00)
[2022-10-26] MEDS: gabapentin 300mg capsule PO SCH (06:43)
--- NOTE | 2022-10-26 06:54 | NUR ---
Patient in room CICU 2007. I have received report from Haylie BOYD and had the opportunity to ask questions and assume patient care. Pt laying semi fowlers in bed. Pt declines c/o pain at this time, states some discimfort from Sx. Pt on 1L NC, No s/s of distress. Pts Insulin GTT shut off per protocol. No s/s of hypo/hyperglycemia. Pt states shes feeling more awake and ready to get out of bed to chair and ambulate. BLL, call light within reach, frequently used items in reach, frequent rounding. Will continue to monitor.
[2022-10-26] MEDS: NORepinephrine 8mg/ 250ml NS 250 ML IV SCH (07:15)
[2022-10-26] MEDS: levoTHYROXINE 175mcg tablet PO SCH (10:04)
[2022-10-26] MEDS: sennosides/docusate sodium tablet PO SCH ×2 (10:04→20:10)
[2022-10-26] MEDS: aspirin 81mg tab.chew PO SCH (10:04)
[2022-10-26] MEDS: vancomycin/NS 1 GM ADD-VANTAGE 250 ML IV SCH ×2 (10:04→20:09)
[2022-10-26] MEDS: mupirocin 2% nasal ointment 1gm UD NS SCH ×2 (10:28→20:11)
[2022-10-26] MEDS: HYDROcodone/acetaminophen 10/325mg tab PO PRN ×3 (11:08→23:54)
[2022-10-26] MEDS ORDERED: mineral oil/petrolatum ophthal oint EACHEYE SCH (14:00)
[2022-10-26] MEDS: Insulin Reg/NS 100units/100mL 100 ML IV SCH (14:50)
--- NOTE | 2022-10-26 18:16 | NUR ---
Problems reprioritized. Patient report given, questions answered & plan of care reviewed with Liz BOYD.
--- NOTE | 2022-10-26 18:25 | NUR ---
Patient in room CICU 2007. I have received report from Obdulia BOYD and had the opportunity to ask questions and assume patient care.
--- NOTE | 2022-10-26 20:05 | NUR ---
MD Russell called to confirm giving scheduled metoprolol. Informed that current BP is 111/55 and that she has been of levophed since 1500, informed that HR is SR in 80s. states to hold metoprolol for tonight.
[2022-10-26] MEDS: atorvastatin 10mg tablet PO SCH (20:11)
[2022-10-26 23:09] LABS: POTASSIUM 4.8 MMOL/L (3.5-5.1)
[2022-10-26 23:40] LABS: MAGNESIUM 2.3 MG/DL (1.5-2.4); PHOSPHORUS 2.1 MG/DL (2.3-4.5)
[2022-10-27] VITALS (23 sets, daily range): BP systolic 93–122; BP diastolic 41–62
[2022-10-27 04:13] LABS: BASOPHILS % (AUTO) 0.1 % (0-1); EOSINOPHILS % (AUTO) 0 % (0-6); HEMATOCRIT 25.4 % (35.0-45.0); HEMOGLOBIN 8.6 g/dl (12.0-16.0); LYMPHOCYTES # (AUTO) 1.3 X10'3 (1.1-4.8); LYMPHOCYTES % (AUTO) 8.3 % (21-51); MEAN CORPUSCULAR HEMOGLOBIN 32.3 PG (27.0-31.0); MEAN CORPUSCULAR HGB CONC 33.8 g/dL (33.0-36.5); MEAN CORPUSCULAR VOLUME 95.3 FL (78-98); MEAN PLATELET VOLUME 9.2 FL (7.4-10.4); MONOCYTES # (AUTO) 1.4 X10'3 (0-0.9); MONOCYTES % (AUTO) 8.8 % (2-12); NEUTROPHILS # (AUTO) 12.9 X10'3 (1.8-7.7); NEUTROPHILS % (AUTO) 82.8 % (42-75); PLATELET COUNT 80 X10'3 (140-440); RED BLOOD COUNT 2.66 X10'6 (4.20-5.60); RED CELL DISTRIBUTION WIDTH 12.3 % (11.5-14.5); WHITE BLOOD COUNT 15.6 X10'3 (4.5-11.0)
[2022-10-27 04:36] LABS: ALBUMIN 3.2 G/DL (3.4-5.0); ANION GAP 5 (8-16); BLOOD UREA NITROGEN 17 MG/DL (7-18); BUN/CREATININE RATIO 29.8 (6.6-38.0); CALCIUM 8.1 MG/DL (8.5-10.1); CHLORIDE 109 MMOL/L (99-107); CREATININE 0.57 MG/DL (0.40-0.90); GLUCOSE 135 MG/DL (70-104); MAGNESIUM 2.7 MG/DL (1.5-2.4); PHOSPHORUS 2.7 MG/DL (2.3-4.5); POTASSIUM 4.8 MMOL/L (3.5-5.1); SODIUM 141 MMOL/L (135-145); TOTAL CARBON DIOXIDE 27.5 MMOL/L (24-32); eGFR > 90 ML/MIN
--- NOTE | 2022-10-27 06:12 | NUR ---
Problems reprioritized. Patient report given, questions answered & plan of care reviewed with Obdulia BOYD.
--- NOTE | 2022-10-27 06:22 | NUR ---
Patient in room CICU 2008. I have received report from Kaelyn BOYD and had the opportunity to ask questions and assume patient care. Pt is laying semi fowlers in bed, and is resting comfortably. Pt on 2L NC sating 97%, no s/s of distress, no s/s of pain. BLL, call light within reach, frequently used items in reach, frequent rounding, wool dyer socks on. Will continue to monitor.
[2022-10-27] MEDS: pantoprazole 40mg Tablet.DR PO SCH (07:34)
[2022-10-27] MEDS: metoprolol tartrate 12.5mg (1/2 tablet) PO SCH ×2 (08:00→19:46)
[2022-10-27] MEDS: levoTHYROXINE 175mcg tablet PO SCH (08:48)
[2022-10-27] MEDS: aspirin 81mg tab.chew PO SCH (08:48)
[2022-10-27] MEDS: HYDROcodone/acetaminophen 10/325mg tab PO PRN ×3 (08:48→19:48)
[2022-10-27] MEDS: mupirocin 2% nasal ointment 1gm UD NS SCH (08:49)
[2022-10-27] MEDS: sennosides/docusate sodium tablet PO SCH ×2 (08:49→19:46)
[2022-10-27] MEDS ORDERED: potassium Cl 20mEq/100mL bag 100 ML IV PRN (09:25)
[2022-10-27] MEDS ORDERED: potassium Cl 40MEQ/1/2NS 520ml 520 ML IV PRN (09:25)
[2022-10-27] MEDS ORDERED: magnesium 2GM in 50ml NS 50 ML IV PRN (09:25)
[2022-10-27] MEDS ORDERED: potassium Cl 40MEQ/270ML bag 250 ML IV PRN (09:25)
[2022-10-27] MEDS ORDERED: potassium CL 10mEq/100ml bag 100 ML IV PRN (09:25)
[2022-10-27] MEDS ORDERED: potassium Cl 20 mEq SR tablet PO PRN ×2 (09:25)
[2022-10-27] MEDS ORDERED: magnesium 4gm in 100ml NS 100 ML IV PRN (09:25)
--- NOTE | 2022-10-27 10:31 | NUR ---
Pt has a +MRSA swab, CRN aware. Will continue to monitor.
--- NOTE | 2022-10-27 10:46 | NUR ---
Nutrition consult: Pt post-op day 2 s/p CABG x 3 per EMR. PO 100% first two post-op meals w/ ~38% dinner last night per EMR. Pt seen by RD at bedside for written/verbal high protein/heart healthy diet eds w/ RD contact information provided. Pt reports appetite has regressed post-op though no food preferences. Pt is agreeable to strawberry Alessandro smoothie BIDBD for wound healing-PA notified; pt reports drinks premier proteins every morning in coffee, eats routine meals TID, and takes daily MVI at home. RD encouraged pt to contact dietitian's office if further nutrition questions/concerns. Recommendations: 1) return to heart healthy diet per physician post-op 2) strawberry Alessandro smoothie BIDBD for wound healing; pending PA verification in EMR 3) Routine bowel care 4) Weekly scaled weights Addendum: 10/27/22 at [address] Amended: Links added.
--- NOTE | 2022-10-27 18:22 | NUR ---
Problems reprioritized. Patient report given, questions answered & plan of care reviewed with Tonya BOYD.
[2022-10-27] MEDS: JUVEN Smoothie Arginine/Glut./Ca2+Bmb (Juven 19.3pkt) 240ml cup PO SCH (19:00)
[2022-10-27] MEDS: magnesium Cl slow-release 64mg tablet PO SCH (19:45)
[2022-10-27] MEDS: atorvastatin 10mg tablet PO SCH (19:46)
[2022-10-28] VITALS (8 sets, daily range): BP systolic 90–126; BP diastolic 48–61
--- NOTE | 2022-10-28 02:30 | NUR ---
Patient in room PCU 3012. I have received report from Tonya BOYD and had the opportunity to ask questions and assume patient care. Addendum: 10/28/22 at 0437 by Luis Metzger RN in room 2007
[2022-10-28 02:54] LABS: BASOPHILS % (AUTO) 0.2 % (0-1); EOSINOPHILS % (AUTO) 0 % (0-6); HEMATOCRIT 27.2 % (35.0-45.0); HEMOGLOBIN 9.3 g/dl (12.0-16.0); LYMPHOCYTES # (AUTO) 1.4 X10'3 (1.1-4.8); LYMPHOCYTES % (AUTO) 9.7 % (21-51); MEAN CORPUSCULAR HEMOGLOBIN 32.6 PG (27.0-31.0); MEAN CORPUSCULAR HGB CONC 34.2 g/dL (33.0-36.5); MEAN CORPUSCULAR VOLUME 95.4 FL (78-98); MEAN PLATELET VOLUME 9.3 FL (7.4-10.4); MONOCYTES # (AUTO) 1.2 X10'3 (0-0.9); MONOCYTES % (AUTO) 8.3 % (2-12); NEUTROPHILS # (AUTO) 11.8 X10'3 (1.8-7.7); NEUTROPHILS % (AUTO) 81.8 % (42-75); PLATELET COUNT 94 X10'3 (140-440); RED BLOOD COUNT 2.85 X10'6 (4.20-5.60); RED CELL DISTRIBUTION WIDTH 12.5 % (11.5-14.5); WHITE BLOOD COUNT 14.4 X10'3 (4.5-11.0)
--- NOTE | 2022-10-28 02:59 | NUR ---
Report called to receiving nurse Alexandra BOYD. Transferred via wheelchair with all Belongings . Special Issues communicated to receiving nurse, patient medicated with one [place]cadia PO for mild pain .
--- NOTE | 2022-10-28 03:00 | NUR ---
RECIEVED REPORT FROM TREVOR BOYD, ALL QUESTIONS ANSWERED. AWAITING PT ARRIVAL.
[2022-10-28 03:01] LABS: ALBUMIN 3.2 G/DL (3.4-5.0); ANION GAP 5 (8-16); BLOOD UREA NITROGEN 19 MG/DL (7-18); BUN/CREATININE RATIO 34.5 (6.6-38.0); CALCIUM 8.6 MG/DL (8.5-10.1); CHLORIDE 106 MMOL/L (99-107); CREATININE 0.55 MG/DL (0.40-0.90); GLUCOSE 122 MG/DL (70-104); POTASSIUM 4.7 MMOL/L (3.5-5.1); SODIUM 140 MMOL/L (135-145); TOTAL CARBON DIOXIDE 29.4 MMOL/L (24-32); eGFR > 90 ML/MIN
[2022-10-28] MEDS: HYDROcodone/acetaminophen 10/325mg tab PO PRN ×3 (03:03→22:33)
--- NOTE | 2022-10-28 03:15 | NUR ---
PATIENT ARRIVED TO ROOM 3012C VIA WHEELCHAIR. PT HAS NO COMPLAINTS AT THIS TIME. CHEST TUBE CONNECTED TO SUCTION, NO AIR LEAK NOTED AND OUTPUT NOTED AT TIME OF TRANSFER. PATIENT WAS ORIENTATED TO ROOM, BED, AND CALL LIGHT. I HAVE ASSUMED CARE OF PATIENT.
[2022-10-28 07:03] LABS: ACT @ 1.70 U 283 SEC (193-297); ACT @ 2.84 U 402 SEC (260-420); BASELINE ACT 151 SEC (101-148); PATIENT WEIGHT 76.0k KG
[2022-10-28 07:05] LABS: ABG BASE EXCESS -4.4 mmol/L (-2.0-2.0); ABG HCO3 20.9 mmol/L (22.0-26.0); ABG OXYGEN SATURATION 98.6 % (94-97); ABG PCO2 (T) 39.5 mmHg (32.0-45.0); ABG PO2 (T) 205.7 mmHg (75.0-100.0); FCOHb 0.3 % (0.0-3.9); FMetHb 0.3 % (0.0-1.5); PEEP 5 cm H2O; RESPIRATORY RATE 12 b/min; TIDAL VOLUME 500 mL; TOTAL HEMOGLOBIN 13.1 G/dl (12.0-16.0)
[2022-10-28] MEDS: JUVEN Smoothie Arginine/Glut./Ca2+Bmb (Juven 19.3pkt) 240ml cup PO SCH ×2 (07:30→17:30)
[2022-10-28] MEDS: aspirin 81mg tab.chew PO SCH (07:55)
[2022-10-28] MEDS: levoTHYROXINE 175mcg tablet PO SCH (07:55)
[2022-10-28] MEDS: pantoprazole 40mg Tablet.DR PO SCH (07:55)
[2022-10-28] MEDS: sennosides/docusate sodium tablet PO SCH ×2 (07:55→20:52)
[2022-10-28] MEDS: metoprolol tartrate 12.5mg (1/2 tablet) PO SCH (07:56)
[2022-10-28] MEDS: magnesium Cl slow-release 64mg tablet PO SCH ×2 (08:00→20:00)
[2022-10-28] MEDS ORDERED: furosemide 20MG tablet PO ONE (09:45)
[2022-10-28 12:19] LABS: ABG HCO3 21.9 mmol/L (22.0-26.0); ABG PCO2 31.5 mmHg (32.0-45.0)
[2022-10-28 12:20] LABS: FCOHb 0.6 % (0.0-3.9); FO2Hb 98.5 % (94-97)
[2022-10-28 12:21] LABS: ABG OXYGEN SATURATION 99.4 % (94-97); CL (ABG) 108 mmol/L (99-107); FMetHb 0.3 % (0.0-1.5); K (ABG) 3.6 mmol/L (3.5-5.1)
[2022-10-28 12:22] LABS: GLUCOSE (ABG) 108 mg/dl (70-104); IONIZED CA (ABG) 1.13 mmol/L (1.10-1.30)
[2022-10-28 12:24] LABS: ABG BASE EXCESS VENOUS 0.3 mmol/L (-2.0 - 2.0); ABG HCO3 VENOUS 24.2 mmol/L (21.0-28.0); ABG PCO2 VENOUS 36.6 mmHg (38.0-51.0); TOTAL HEMOGLOBIN 11.1 G/dl (12.0-16.0)
[2022-10-28 12:25] LABS: FCOHb VENOUS 0.3 % (0.0- 3.9); FHHb VENOUS 8.5 %; FMetHb VENOUS 0.3 % (0.0 - 0.5); FO2Hb VENOUS 90.9 %; K (ABG) 5.5 mmol/L (3.5-5.1)
[2022-10-28 12:26] LABS: CL (ABG) 106 mmol/L (99-107); GLUCOSE (ABG) 159 mg/dl (70-104); IONIZED CA (ABG) 1.01 mmol/L (1.10-1.30)
[2022-10-28 12:27] LABS: ABG PCO2 34.5 mmHg (32.0-45.0)
[2022-10-28 12:28] LABS: ABG BASE EXCESS 0.6 mmol/L (-2.0-2.0); FCOHb 0.3 % (0.0-3.9); FMetHb 0.3 % (0.0-1.5); FO2Hb 98.5 % (94-97); TOTAL HEMOGLOBIN 10.9 G/dl (12.0-16.0)
[2022-10-28 12:29] LABS: ABG OXYGEN SATURATION 99.1 % (94-97); CL (ABG) 106 mmol/L (99-107); IONIZED CA (ABG) 1.02 mmol/L (1.10-1.30)
[2022-10-28 12:30] LABS: GLUCOSE (ABG) 161 mg/dl (70-104)
[2022-10-28 12:31] LABS: ABG PCO2 37.1 mmHg (32.0-45.0)
[2022-10-28 12:32] LABS: ABG BASE EXCESS -0.9 mmol/L (-2.0-2.0); ABG HCO3 23.4 mmol/L (22.0-26.0); FCOHb 0.3 % (0.0-3.9); FMetHb 0.3 % (0.0-1.5); FO2Hb 98.5 % (94-97); TOTAL HEMOGLOBIN 10.9 G/dl (12.0-16.0)
[2022-10-28 12:33] LABS: ABG OXYGEN SATURATION 99.1 % (94-97); CL (ABG) 107 mmol/L (99-107); GLUCOSE (ABG) 171 mg/dl (70-104); K (ABG) 4.6 mmol/L (3.5-5.1)
[2022-10-28 12:35] LABS: ABG BASE EXCESS -1.5 mmol/L (-2.0-2.0); ABG HCO3 22.9 mmol/L (22.0-26.0); ABG PCO2 37.2 mmHg (32.0-45.0)
[2022-10-28 12:36] LABS: ABG OXYGEN SATURATION 98.9 % (94-97); FCOHb 0.3 % (0.0-3.9); FMetHb 0.3 % (0.0-1.5); FO2Hb 98.3 % (94-97); TOTAL HEMOGLOBIN 10.4 G/dl (12.0-16.0)
[2022-10-28 12:37] LABS: CL (ABG) 108 mmol/L (99-107); GLUCOSE (ABG) 176 mg/dl (70-104); K (ABG) 4.7 mmol/L (3.5-5.1)
[2022-10-28 12:40] LABS: ABG PCO2 36.3 mmHg (32.0-45.0)
[2022-10-28 12:41] LABS: ABG BASE EXCESS 1.3 mmol/L (-2.0-2.0); ABG HCO3 25.1 mmol/L (22.0-26.0); FCOHb 0.2 % (0.0-3.9); FO2Hb 98.7 % (94-97)
[2022-10-28 12:42] LABS: ABG OXYGEN SATURATION 99.2 % (94-97); FMetHb 0.3 % (0.0-1.5)
[2022-10-28 12:43] LABS: CL (ABG) 106 mmol/L (99-107); GLUCOSE (ABG) 168 mg/dl (70-104); IONIZED CA (ABG) 0.96 mmol/L (1.10-1.30); K (ABG) 4.4 mmol/L (3.5-5.1)
[2022-10-28 12:45] LABS: ABG BASE EXCESS VENOUS -2.8 mmol/L (-2.0 - 2.0); ABG HCO3 VENOUS 20.2 mmol/L (21.0-28.0); ABG PCO2 VENOUS 28.7 mmHg (38.0-51.0)
[2022-10-28 12:46] LABS: FCOHb VENOUS 0.3 % (0.0- 3.9); FMetHb VENOUS 0.3 % (0.0 - 0.5); FO2Hb VENOUS 97.7 %; TOTAL HEMOGLOBIN 9.8 G/dl (12.0-16.0)
[2022-10-28 12:47] LABS: CL (ABG) 110 mmol/L (99-107); FHHb VENOUS 1.7 %; K (ABG) 3.9 mmol/L (3.5-5.1)
[2022-10-28 12:48] LABS: GLUCOSE (ABG) 147 mg/dl (70-104); IONIZED CA (ABG) 1.19 mmol/L (1.10-1.30)
--- NOTE | 2022-10-28 12:51 | NUR ---
Assumed pt care asy Addendum: 10/28/22 at 1252 by Beti Miner RN * assumed pt care at 1100, documentation back dated for charting purposes... "real time" assessments occurred at 1115 AM.
--- NOTE | 2022-10-28 12:59 | NUR ---
Problems reprioritized. Patient report given, questions answered & plan of care reviewed with Beti BOYD, patient stable at transfer of care.
--- NOTE | 2022-10-28 17:16 | NUR ---
Pt voided post-baca. Zero PVR
--- NOTE | 2022-10-28 18:00 | NUR ---
Patient in room PCU 3012. I have received report from Beti BOYD and had the opportunity to ask questions and assume patient care.
[2022-10-28] MEDS: atorvastatin 10mg tablet PO SCH (20:52)
[2022-10-29] VITALS: BP 110/58
[2022-10-29 04:00] VITALS: BP 113/63
[2022-10-29 06:00] VITALS: BP 111/55
[2022-10-29 06:58] LABS: BASOPHILS # (AUTO) 0.1 X10'3 (0-0.2); BASOPHILS % (AUTO) 0.8 % (0-1); EOSINOPHILS % (AUTO) 0.6 % (0-6); HEMATOCRIT 28.1 % (35.0-45.0); HEMOGLOBIN 9.8 g/dl (12.0-16.0); LYMPHOCYTES # (AUTO) 1.7 X10'3 (1.1-4.8); LYMPHOCYTES % (AUTO) 20.9 % (21-51); MEAN CORPUSCULAR HGB CONC 34.8 g/dL (33.0-36.5); MEAN PLATELET VOLUME 8.7 FL (7.4-10.4); MONOCYTES # (AUTO) 0.8 X10'3 (0-0.9); MONOCYTES % (AUTO) 10.2 % (2-12); NEUTROPHILS # (AUTO) 5.5 X10'3 (1.8-7.7); NEUTROPHILS % (AUTO) 67.5 % (42-75); PLATELET COUNT 117 X10'3 (140-440); RED BLOOD COUNT 2.96 X10'6 (4.20-5.60); RED CELL DISTRIBUTION WIDTH 12.4 % (11.5-14.5); WHITE BLOOD COUNT 8.2 X10'3 (4.5-11.0)
[2022-10-29 07:09] LABS: ALBUMIN 3.1 G/DL (3.4-5.0); ANION GAP 7 (8-16); BLOOD UREA NITROGEN 21 MG/DL (7-18); BUN/CREATININE RATIO 36.2 (6.6-38.0); CALCIUM 8.9 MG/DL (8.5-10.1); CHLORIDE 105 MMOL/L (99-107); CREATININE 0.58 MG/DL (0.40-0.90); GLUCOSE 102 MG/DL (70-104); POTASSIUM 3.9 MMOL/L (3.5-5.1); SODIUM 140 MMOL/L (135-145); TOTAL CARBON DIOXIDE 28.2 MMOL/L (24-32); eGFR > 90 ML/MIN
--- NOTE | 2022-10-29 07:27 | NUR ---
Problems reprioritized. Patient report given, questions answered & plan of care reviewed with Lady BOYD.
[2022-10-29] MEDS: JUVEN Smoothie Arginine/Glut./Ca2+Bmb (Juven 19.3pkt) 240ml cup PO SCH (07:30)
[2022-10-29] MEDS: sennosides/docusate sodium tablet PO SCH (07:40)
[2022-10-29] MEDS: levoTHYROXINE 175mcg tablet PO SCH (07:40)
[2022-10-29] MEDS: pantoprazole 40mg Tablet.DR PO SCH (07:40)
[2022-10-29] MEDS: aspirin 81mg tab.chew PO SCH (07:41)
[2022-10-29] MEDS: magnesium Cl slow-release 64mg tablet PO SCH (08:00)
[2022-10-29 08:43] VITALS: BP 88/46
[2022-10-29] MEDS ORDERED: ASPI81TA53 PO (09:01)
[2022-10-29] MEDS ORDERED: HYDR-3972 PO (09:01)
[2022-10-29] MEDS ORDERED: ATOR10TA PO (09:01)
--- NOTE | 2022-10-29 11:00 | NUR ---
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
[2022-10-29 11:23] VITALS: BP 108/57
--- NOTE | 2022-10-29 15:23 | NUR ---
Pt stable for discharge per Dr. Roth. All discharge instructions reviewed with patient and all questions answered, pt verbalized understanding. Provided pt with education regarding CABG after care. New medications e-scripted to Caterina in [place]. PIV discontinued, cannula intact. Tele discontinued. All belongings collected and sent with patient. Wheeled to lobby via nursing staff and picked up by spouse.
== END 2022-10-29 13:05 | disposition home or self-care (01) | DRG 234 ==
LOC: ER 00:08 → ED HOLD 03:45 → PCU 3S 10:28 → OBSVTOIN 10-21 09:30 → CICU 2S 10-25 09:40 → PCU 3S 10-28 03:42
PROVIDERS: ADMIT Family Medicine; ATTEND Internal Medicine
PROC: 4A02XM4 Measurement of Cardiac Total Activity, External Approach (ICD-10-PCS; 2022-10-20)
PROC: 3E033HZ Introduction of Radioactive Substance into Peripheral Vein, Percutaneous Approach (ICD-10-PCS; 2022-10-20)
PROC: 4A023N7 Measurement of Cardiac Sampling and Pressure, Left Heart, Percutaneous Approach (ICD-10-PCS; 2022-10-22)
PROC: B2111ZZ Fluoroscopy of Multiple Coronary Arteries using Low Osmolar Contrast (ICD-10-PCS; 2022-10-22)
PROC: 021109W Bypass Coronary Artery, Two Arteries from Aorta with Autologous Venous Tissue, Open Approach (ICD-10-PCS; 2022-10-25)
PROC: 06BQ4ZZ Excision of Left Saphenous Vein, Percutaneous Endoscopic Approach (ICD-10-PCS; 2022-10-25)
PROC: 5A1221Z Performance of Cardiac Output, Continuous (ICD-10-PCS; 2022-10-25)
PROC: B24BZZ4 Ultrasonography of Heart with Aorta, Transesophageal (ICD-10-PCS; 2022-10-25)
PROC: 02L70CK Occlusion of Left Atrial Appendage with Extraluminal Device, Open Approach (ICD-10-PCS; 2022-10-25)
PROC: 02100Z9 Bypass Coronary Artery, One Artery from Left Internal Mammary, Open Approach (ICD-10-PCS; principal; 2022-10-25 07:30)
DX: I25.119 Atherosclerotic heart disease of native coronary artery with unspecified angina pectoris (principal); E03.9 Hypothyroidism, unspecified; E78.5 Hyperlipidemia, unspecified; I10 Essential (primary) hypertension; I34.0 Nonrheumatic mitral (valve) insufficiency; I48.0 Paroxysmal atrial fibrillation; Z82.49 Family history of ischemic heart disease and other diseases of the circulatory system; Z83.3 Family history of diabetes mellitus
CPT/HCPCS: 0232T; 93306; 93312; 93325; 93458; 96374; 99285; Z7506; Z7508; 36415; 36600; 71045; 71046; 78452; 80048; 80053; 80061; 81001; 82330; 82435; 82800; 82803; 82947; 82948; 83036; 83735; 83880; 84100; 84132; 84295; 84443; 84478; 84484; 85018; 85025; 85347; 85384; 85610; 85730; 86885; 86900; 86901; 86920; 87081; 93005; 93017; 93880; 93970; 94002; 94010; 94668; 94760; 97116; 97161; 97530; 99152; A4333; A4615; A4618; A4620; A6213; A6258; A6402; A6449; A7000; A7048; A9500; C1751; C1769; C1781; C1894; G0378; J0131; J0280; J0690; J1100; J1265; J1644; J1650; J1815; J2060; J2250; J2370; J2405; J2440; J2704; J2785; J2930; J3010; J3370; J3475; J3480; J3490; J7030; J7040; J7050; J7060; J7120; P9045; P9047; Q9967